=== PATIENT | female | born 1970 | race Caucasian/White ===

== ENCOUNTER 2017-10-28 10:25 | Emergency (ER) | payer OTHER ==
[~2017-10-28] VITALS: Ht 156.2 cm; Wt 105.8 kg
[2017-10-28] MEDS ORDERED: BUPROPION XL300 M1 PO (12:10)
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
[2017-10-28] MEDS ORDERED: GABAPENTIN300 M2 PO (12:11)
[2017-10-28] MEDS ORDERED: LAMOTRIGINE100 M2 PO (12:11)
[2017-10-28] MEDS ORDERED: SUBOXONE 8 MG-1 EACH SL (12:11)
[2017-10-28] MEDS ORDERED: PROVERA5 M1 PO (12:12)
[2017-10-28 12:22] VITALS: BP 124/79
== END 2017-10-28 12:46 ==
LOC: ERH 10:25
DX: S09.90XA Unspecified injury of head, initial encounter (principal); S00.81XA Abrasion of other part of head, initial encounter; S00.83XA Contusion of other part of head, initial encounter; S93.402A Sprain of unspecified ligament of left ankle, initial encounter; W19.XXXA Unspecified fall, initial encounter; Y93.01 Activity, walking, marching and hiking; Y92.009 Unspecified place in unspecified non-institutional (private) residence as the place of occurrence of the external cause